=== PATIENT | female | born 1950 | race Caucasian/White ===

== ENCOUNTER 2023-01-29 12:40 | Emergency (ER) | payer BC ==
[~2023-01-29] VITALS: Ht 162.6 cm; Wt 75.3 kg
[2023-01-29 12:58] VITALS: BP_SYST 123
[2023-01-29 13:22] LABS: BASOPHILS # (AUTO) 0.1 K/uL (0.0-0.2); BASOPHILS % (AUTO) 1.2 % (0.0-2.0); EOSINOPHILS # (AUTO) 0.2 K/uL (0.0-0.4); EOSINOPHILS % (AUTO) 2.3 % (0.0-4.0); HEMATOCRIT 45.1 % (36-48); HEMOGLOBIN 15.3 g/dL (12.0-16.0); LYMPHOCYTES # (AUTO) 1.5 K/uL (1.0-5.5); LYMPHOCYTES % (AUTO) 22.9 % (20.5-51.5); MEAN CORPUSCULAR HEMOGLOBIN 32 pg (27-31); MEAN CORPUSCULAR HGB CONC 34 % (32-36); MEAN CORPUSCULAR VOLUME 95 fL (79.0-98.0); MONOCYTES # (AUTO) 0.4 K/uL (0.0-1.0); MONOCYTES % (AUTO) 6.8 % (1.7-9.3); NEUTROPHILS # (AUTO) 4.3 K/uL (1.8-7.7); NEUTROPHILS % (AUTO) 66.8 % (40.0-70.0); PLATELET COUNT (AUTO) 305 K/uL (130-430); RED BLOOD CELL COUNT(AUTO) 4.73 MIL/uL (4.2-6.2); RED CELL DISTRIBUTION WIDTH 13.4 % (9.0-15.0); WHITE BLOOD COUNT (AUTO) 6.5 K/uL (4.8-10.8)
[2023-01-29 13:38] LABS: CALCIUM 9.1 mg/dL (8.4-11.0); CREATININE 0.88 mg/dL (0.55-1.30)
[2023-01-29 14:27] LABS: BILIRUBIN,URINE NEGATIVE (NEGATIVE); BLOOD, URINE NEGATIVE (NEGATIVE); CLARITY/URINE CLEAR (CLEAR); COLOR,URINE YELLOW (YELLOW); GLUCOSE,URINE NEGATIVE (NEGATIVE); KETONES,URINE NEGATIVE (NEGATIVE); NITRITE, URINE NEGATIVE (NEGATIVE); PROTEIN URINE 2+ (NEGATIVE); UROBILINOGEN,URINE 0.2 (0.2-1.0)
[2023-01-29 14:40] LABS: LEUKOCYTE ESTERASE ,URINE TRACE (NEGATIVE)
[2023-01-29 14:44] LABS: BACTERIA,URINE FEW /HPF (None Seen); MUCUS,URINE None Seen /LPF (None Seen); RBC,URINE NONE SEEN /HPF (0-3)
--- NOTE | 2023-01-29 16:48 | NUR ---
Patient placed in ER HALLWAY 2 for MD evaluation PER DOCUMENTATION.
--- NOTE | 2023-01-29 16:50 | NUR ---
MD DR BURNS AT BEDSIDE
--- NOTE | 2023-01-29 17:07 | NUR ---
PT BIB SON AWAKE AND ALERT AOX4, NO SOB OR DISTRESS. PT C/O R LOER ABDOMINAL PAIN X4 DAYS. PT STATES PAIN 10/10. PT DENIES HX, PT HAD SPINAL SX AT L4 AND L5. PT LBM WAS X5 DAYS AGO.
--- NOTE | 2023-01-29 17:27 | NUR ---
PT TAKEN TO CT
[2023-01-29 19:20] VITALS: BP_SYST 138
--- NOTE | 2023-01-29 19:20 | NUR ---
Patient given written and verbal discharge instructions BY DR. BURNS and verbalizes understanding. ER MD discussed with patient the results and treatment provided. Patient in stable condition. ID arm band removed. NO Rx given. Patient educated on pain management and to follow up with PMD. Pain Scale 0/10. Opportunity for questions provided and answered. Medication side effect fact sheet provided.
== END 2023-01-29 19:20 | disposition home or self-care (01) ==
LOC: SED 12:40
DX: K59.00 Constipation, unspecified (principal); R10.31 Right lower quadrant pain; Z88.2 Allergy status to sulfonamides; Z79.899 Other long term (current) drug therapy
CPT/HCPCS: 36415; 76376; 80048; 81000; 85025; 87210-TC; 99284